=== PATIENT | male | born 1935 | race Caucasian/White ===

== ENCOUNTER 2018-01-11 06:13 | Inpatient (IN) | payer OTHER ==
[2018-01-02 15:28] LABS: BASOPHILS # (AUTO) 0.1 X10'3 (0-0.2); BASOPHILS % (AUTO) 0.8 % (0-1); EOSINOPHILS # (AUTO) 0.4 X10'3 (0-0.9); EOSINOPHILS % (AUTO) 4.9 % (0-6); LYMPHOCYTES # (AUTO) 1.4 X10'3 (1.1-4.8); LYMPHOCYTES % (AUTO) 18.6 % (21-51); MEAN CORPUSCULAR HEMOGLOBIN 32.7 PG (27.0-31.0); MEAN CORPUSCULAR HGB CONC 33.3 % (33.0-36.5); MEAN CORPUSCULAR VOLUME 98.3 FL (78-98); MEAN PLATELET VOLUME 7.5 FL (7.4-10.4); MONOCYTES # (AUTO) 0.6 X10'3 (0-0.9); MONOCYTES % (AUTO) 7.3 % (2-12); NEUTROPHILS # (AUTO) 5.3 X10'3 (1.8-7.7); NEUTROPHILS % (AUTO) 68.4 % (42-75); PRE OP HEMATOCRIT 41.6 % (42.0-52.0); PRE OP HEMOGLOBIN 13.8 g/dL (14.0-17.9); PRE OP PLATELET COUNT 253 X10'3 (140-440); RED BLOOD COUNT 4.23 X10'6 (4.70-6.10); RED CELL DISTRIBUTION WIDTH 13.8 % (11.5-14.5)
[2018-01-02 15:36] LABS: ALBUMIN 3.5 G/DL (3.4-5.0); ALBUMIN/GLOBULIN RATIO 0.9 (1.1-1.5); ALKALINE PHOSPHATASE 82 IU/L (46-116); BLOOD UREA NITROGEN 24 MG/DL (7-18); BUN/CREATININE RATIO 20.7 (5.4-32.0); CHLORIDE 103 MMOL/L (99-107); CREATININE 1.16 MG/DL (0.60-1.10); PRE OP ALT 23 U/L (30-65); PRE OP ANION GAP 7 (8-16); PRE OP AST 13 U/L (10-37); PRE OP BILIRUB, TOTAL 0.3 MG/DL (0.0-1.0); PRE OP GLUCOSE 137 MG/DL (70-104); PRE OP SODIUM 138 MMOL/L (135-145); TOTAL CARBON DIOXIDE 27.8 MMOL/L (24-32); TOTAL PROTEIN 7.2 G/DL (6.4-8.2); eGFR 60 ML/MIN
[2018-01-11] VITALS (18 sets, daily range): BP systolic 111–156; BP diastolic 55–82
[~2018-01-11] VITALS: Ht 177.8 cm; Wt 97.5 kg
[~2018-01-11 06:13] MED LIST: ALLO100T PO; AMLO2.5T2 PO; ASCO500C15 PO; CHOL400T14 PO; DOCU-28 PO; GABA-532 PO; GLUC-150 PO; HYDR-4383 PO; OCUVITE PO; PANT-47 PO; SPIR25TA5 PO; acetaminophen 325mg tablet PO ONE; cefazolin/dext.iso 2gm/50ml 50 ML IV ONE; famotidine 20mg tablet PO ONE; gabapentin 300mg capsule PO ONE; metoclopramide 5 mg/ml inj IV ONE; ringers solution, lacted 1,000 ML IV SCH; tranexamic acid inj. 1,000 MG in normal saline 100ml IV soln 90 ML IV ONE; vancomycin 1,000mg inj ONE; vancomycin inj 1,500 MG in normal saline 300ml IV soln IV ONE
[2018-01-11] MEDS ORDERED: LIDOcaine 1% (10mg/ml) 2ml vial ONE ×2 (06:15→09:24)
[2018-01-11] MEDS ORDERED: Thrombin (Bovine) 5,000 unit vial TP ONE (07:29)
[2018-01-11] MEDS ORDERED: vancomycin 1,000mg inj ONE (07:29)
[2018-01-11] MEDS ORDERED: fentaNYL/PF 50MCG/1 ML 2ML syringe ONE (08:30)
[2018-01-11] MEDS ORDERED: MIDAZolam 5mg/5ml vial ONE (08:30)
[2018-01-11] MEDS ORDERED: BUPIVAcaine/dex-water/PF 7.5 mg/ml 2ml ampul ONE (08:32)
[2018-01-11] MEDS ORDERED: EPINEPHRINE IU ONE ×5 (09:00)
[2018-01-11] MEDS ORDERED: ROPIVACAINE IU ONE ×5 (09:00)
[2018-01-11] MEDS ORDERED: KETOROLAC TROMETH IU ONE ×5 (09:00)
[2018-01-11] MEDS ORDERED: [UNRECOGNIZED DRUG - OTHER] IU ONE ×5 (09:00)
[2018-01-11] MEDS ORDERED: ringers solution, lacted 1,000 ML IV SCH (09:06)
[2018-01-11] MEDS ORDERED: ondansetron/PF 4mg/2ml inj IV PRN ×2 (09:10→11:15)
[2018-01-11] MEDS ORDERED: morphine 4 MG/ML inj SYRINge IV PRN ×2 (09:10)
[2018-01-11] MEDS ORDERED: meperidine/PF 25mg/ml syringe IV PRN ×3 (09:10)
[2018-01-11] MEDS ORDERED: proCHLORperazine 10 MG/2 ml inj IV PRN (09:10)
[2018-01-11] MEDS ORDERED: calcium chloride 100 MG/1 ML inj IV ONE (09:15)
[2018-01-11] MEDS ORDERED: ROPIVAcaine 0.5% (5mg/ml) 30ml vial ONE (10:58)
[2018-01-11] MEDS ORDERED: HYDROmorphone 1 mg/ml syringe IV PRN ×2 (11:15)
[2018-01-11] MEDS ORDERED: oxyCODONE IR 5mg (immed. release) tablet PO PRN (11:15)
[2018-01-11] MEDS ORDERED: magnesium hydroxide 30ml (MOM) UD suspension PO PRN (11:15)
[2018-01-11] MEDS ORDERED: bisacodyl 10mg suppository rectal RC PRN (11:15)
[2018-01-11] MEDS ORDERED: acetaminophen 325mg tablet PO PRN (11:15)
[2018-01-11] MEDS ORDERED: diphenhydrAMINE 25mg capsule PO PRN ×2 (11:15)
[2018-01-11] MEDS: potassium cl 20mEq in 1/2 NS 1,000 ML IV SCH (13:37)
[2018-01-11] MEDS: gabapentin 300mg capsule PO SCH ×2 (13:38→20:12)
[2018-01-11] MEDS: acetaminophen 325mg tablet PO SCH ×2 (13:47→20:12)
[2018-01-11] MEDS ORDERED: docusate sod 100mg capsule PO PRN (14:00)
[2018-01-11] MEDS ORDERED: HYDROcodone/acetaminophen 5mg/325mg tablet PO PRN (14:00)
[2018-01-11] MEDS ORDERED: tranexamic acid inj. 1,000 MG in normal saline 100ml IV soln 100 ML IV ONE (14:15)
[2018-01-11 15:48] LABS: CREATININE 1.01 MG/DL (0.60-1.10); eGFR 70 ML/MIN
[2018-01-11 15:49] LABS: POTASSIUM 4.1 MMOL/L (3.5-5.1)
[2018-01-11] MEDS: ceFAZolin 1GM/D5W- ADD-VANTAGE 50 ML IV SCH (16:22)
[2018-01-11] MEDS ORDERED: vancomycin/NS 1 GM ADD-VANTAGE 250 ML IV SCH (20:00)
[2018-01-11] MEDS: amLODIPine 5mg tablet PO SCH (20:12)
[2018-01-11] MEDS: sennosides 8.6mg tablet PO SCH (20:12)
[2018-01-11] MEDS ORDERED: gabapentin 300mg capsule PO SCH (21:00)
[2018-01-12] MEDS: ceFAZolin 1GM/D5W- ADD-VANTAGE 50 ML IV SCH (00:24)
[2018-01-12] MEDS: potassium cl 20mEq in 1/2 NS 1,000 ML IV SCH ×4 (00:27→16:10)
[2018-01-12 02:00] VITALS: BP 138/79
[2018-01-12] MEDS: acetaminophen 325mg tablet PO SCH ×4 (02:20→20:24)
[2018-01-12] MEDS: oxyCODONE IR 5mg (immed. release) tablet PO PRN ×2 (05:52→16:05)
[2018-01-12 06:00] VITALS: BP 134/58
[2018-01-12 06:55] LABS: ANION GAP 8 (8-16); CHLORIDE 105 MMOL/L (99-107); POTASSIUM 4.4 MMOL/L (3.5-5.1); SODIUM 138 MMOL/L (135-145); TOTAL CARBON DIOXIDE 25.3 MMOL/L (24-32)
[2018-01-12 07:08] LABS: BASOPHILS % (AUTO) 0.2 % (0-1); EOSINOPHILS # (AUTO) 0.2 X10'3 (0-0.9); EOSINOPHILS % (AUTO) 1.4 % (0-6); HEMATOCRIT 34.2 % (42.0-52.0); HEMOGLOBIN 11.5 g/dl (14.0-17.9); LYMPHOCYTES # (AUTO) 1.1 X10'3 (1.1-4.8); LYMPHOCYTES % (AUTO) 8.2 % (21-51); MEAN CORPUSCULAR HEMOGLOBIN 33.1 PG (27.0-31.0); MEAN CORPUSCULAR HGB CONC 33.6 % (33.0-36.5); MEAN CORPUSCULAR VOLUME 98.4 FL (78-98); MEAN PLATELET VOLUME 7.8 FL (7.4-10.4); MONOCYTES # (AUTO) 0.9 X10'3 (0-0.9); MONOCYTES % (AUTO) 6.8 % (2-12); NEUTROPHILS # (AUTO) 10.7 X10'3 (1.8-7.7); NEUTROPHILS % (AUTO) 83.4 % (42-75); PLATELET COUNT 236 X10'3 (140-440); RED BLOOD COUNT 3.48 X10'6 (4.70-6.10); RED CELL DISTRIBUTION WIDTH 13.4 % (11.5-14.5); WHITE BLOOD COUNT 12.8 X10'3 (4.5-11.0)
[2018-01-12] MEDS: allopurinol 100mg tablet PO SCH (08:00)
[2018-01-12] MEDS ORDERED: D3 PO SCH (08:00)
[2018-01-12] MEDS ORDERED: BOSWELLIA SERRA PO SCH (08:00)
[2018-01-12] MEDS: aspirin 325mg tablet PO SCH (08:00)
[2018-01-12] MEDS ORDERED: GLUCOSAMINE PO SCH (08:00)
[2018-01-12] MEDS: cholecalciferol (vitamin D) 400 unit tablet PO SCH (08:01)
[2018-01-12] MEDS: gabapentin 300mg capsule PO SCH ×3 (08:01→20:24)
[2018-01-12] MEDS: spironolactone 25 MG tablet PO SCH (08:01)
[2018-01-12] MEDS: pantoprazole 40mg Tablet.DR PO SCH (08:01)
[2018-01-12 10:00] VITALS: BP 120/41
[2018-01-12] MEDS: beta-carotene(A) w/C & E + minerals tab PO SCH (10:36)
[2018-01-12 18:00] VITALS: BP 133/56
[2018-01-12] MEDS: sennosides 8.6mg tablet PO SCH (20:24)
[2018-01-12] MEDS: amLODIPine 5mg tablet PO SCH (20:24)
[2018-01-12] MEDS: celeCOXIB 100mg capsule PO SCH (20:24)
[2018-01-12 22:00] VITALS: BP 146/63
[2018-01-13] MEDS: acetaminophen 325mg tablet PO SCH ×2 (02:08→07:27)
[2018-01-13] MEDS: potassium cl 20mEq in 1/2 NS 1,000 ML IV SCH (03:13)
[2018-01-13] MEDS: oxyCODONE IR 5mg (immed. release) tablet PO PRN (05:36)
[2018-01-13 06:00] VITALS: BP 144/57
[2018-01-13] MEDS: pantoprazole 40mg Tablet.DR PO SCH (07:26)
[2018-01-13] MEDS: allopurinol 100mg tablet PO SCH (07:26)
[2018-01-13] MEDS: aspirin 325mg tablet PO SCH (07:26)
[2018-01-13] MEDS: gabapentin 300mg capsule PO SCH (07:27)
[2018-01-13] MEDS: celeCOXIB 100mg capsule PO SCH (07:27)
[2018-01-13] MEDS: cholecalciferol (vitamin D) 400 unit tablet PO SCH (07:27)
[2018-01-13] MEDS: beta-carotene(A) w/C & E + minerals tab PO SCH (07:27)
[2018-01-13] MEDS: spironolactone 25 MG tablet PO SCH (07:27)
[2018-01-13 08:08] LABS: BASOPHILS % (AUTO) 0.3 % (0-1); EOSINOPHILS # (AUTO) 0.3 X10'3 (0-0.9); EOSINOPHILS % (AUTO) 2.9 % (0-6); HEMATOCRIT 32.5 % (42.0-52.0); LYMPHOCYTES # (AUTO) 1.4 X10'3 (1.1-4.8); LYMPHOCYTES % (AUTO) 13.9 % (21-51); MEAN CORPUSCULAR HEMOGLOBIN 33.2 PG (27.0-31.0); MEAN CORPUSCULAR HGB CONC 33.7 % (33.0-36.5); MEAN CORPUSCULAR VOLUME 98.4 FL (78-98); MEAN PLATELET VOLUME 7.6 FL (7.4-10.4); MONOCYTES # (AUTO) 1.3 X10'3 (0-0.9); MONOCYTES % (AUTO) 13.4 % (2-12); NEUTROPHILS # (AUTO) 6.9 X10'3 (1.8-7.7); NEUTROPHILS % (AUTO) 69.5 % (42-75); PLATELET COUNT 207 X10'3 (140-440); RED CELL DISTRIBUTION WIDTH 13.8 % (11.5-14.5); WHITE BLOOD COUNT 9.9 X10'3 (4.5-11.0)
[2018-01-13 10:00] VITALS: BP 130/54
[2018-01-13] MEDS ORDERED: acetaminophen 325mg tablet PO PRN (11:15)
== END 2018-01-13 15:45 | disposition home or self-care (01) | DRG 470 ==
LOC: PAS IN 06:13 → EDSTATUS 08:30 → ORTHO 4S 12:45
PROVIDERS: ADMIT Orthopaedic Surgery; ATTEND Orthopaedic Surgery
PROC: 3E0T3BZ Introduction of Anesthetic Agent into Peripheral Nerves and Plexi, Percutaneous Approach (ICD-10-PCS; 2018-01-11)
PROC: 0SRD069 Replacement of Left Knee Joint with Oxidized Zirconium on Polyethylene Synthetic Substitute, Cemented, Open Approach (ICD-10-PCS; principal; 2018-01-11 08:30)
DX: M17.12 Unilateral primary osteoarthritis, left knee (principal); D62 Acute posthemorrhagic anemia; I10 Essential (primary) hypertension; M25.762 Osteophyte, left knee; K21.9 Gastro-esophageal reflux disease without esophagitis; Z96.641 Presence of right artificial hip joint; M10.9 Gout, unspecified; Z79.899 Other long term (current) drug therapy; Z88.1 Allergy status to other antibiotic agents; Z85.828 Personal history of other malignant neoplasm of skin; Z79.82 Long term (current) use of aspirin
CPT/HCPCS: 36415; 80051; 80053; 82565; 84132; 85025; 87070; 97110; 97116; 97162; 97530; A6455; A7000; C1713; C1758; C1776; G0378; J0171; J0690; J1885; J2250; J2270; J2765; J2795; J3010; J3370; J3490; J7030; J7120